=== PATIENT | male | born 1950 | race Caucasian/White ===

== ENCOUNTER 2016-09-02 13:27 | Inpatient (IN) | payer MEDICARE, MEDICAID ==
[~2016-09-02] VITALS: Ht 172.7 cm; Wt 84.6 kg
[2016-09-02 14:17] LABS: BASOPHILS # (AUTO) 0.04 K/uL (0.00-0.20); BASOPHILS % (AUTO) 0.3 % (0.0-2.0); EOSINOPHILS # (AUTO) 0.01 K/uL (0.00-0.70); EOSINOPHILS % (AUTO) 0.05 % (1.0-6.0); HEMOGLOBIN 14.7 g/dL (13.5-17.5); LYMPHOCYTES # (AUTO) 1.7 K/uL (1.0-4.8); LYMPHOCYTES % (AUTO) 13.2 % (22.0-44.0); MEAN CORPUSCULAR HEMOGLOBIN 30.5 pg (26.0-34.0); MEAN CORPUSCULAR HGB CONC 33.4 G/dL (31.0-37.0); MEAN CORPUSCULAR VOLUME 91 fL (80-100); NEUTROPHILS % (AUTO) 78.4 % (40.0-70.0); PLATELET COUNT (AUTO) 251 K/uL (150-450); RED BLOOD CELL COUNT(AUTO) 4.81 MIL/uL (4.50-5.90); RED CELL DISTRIBUTION WIDTH 12.1 % (11.5-14.5); WHITE BLOOD COUNT (AUTO) 12.7 K/uL (4.5-11.0)
[2016-09-02 14:27] LABS: ANION GAP 12 mmol/L (8-16); CALCIUM, TOTAL 8.3 mg/dL (8.8-10.5); CARBON DIOXIDE 24 mmol/L (22-29); CHLORIDE 100 mmol/L (98-107); CREATININE 1.28 mg/dL (0.60-1.30); GLOMERULAR FILTR. RATE CALC 56 mL/min (>60); POTASSIUM 3.5 mmol/L (3.5-5.1); SODIUM SERUM 136 mmol/L (136-145); UREA NITROGEN, BLOOD 14 mg/dL (7-18)
[2016-09-02] MEDS ORDERED: VANCOMYCIN HCL 1 GM/D5% WATER 200 ML IV ONE (14:45)
[2016-09-02 14:49] LABS: ALANINE AMINOTRANSFERASE 24 U/L (12-78); ALBUMIN 2.5 g/dL (3.4-5.0); ASPARTATE AMINOTRANSFERASE 28 U/L (15-37); BILIRUBIN,TOTAL 1.1 mg/dL (0.1-1.0); TOTAL PROTEIN, SERUM 7.1 g/dL (6.4-8.2)
[2016-09-02 15:19] LABS: LACTIC ACID 2.4 mmol/L (0.4-2.0)
[2016-09-02] MEDS ORDERED: SODIUM CHLORIDE 0.9% 1,000 ML IV ONE (15:30)
[2016-09-02 16:14] LABS: REFLEX LACTIC ACID? YES YES
[2016-09-02] MEDS ORDERED: ACETAMINOPHEN 325 MG TABLET PO PRN (16:15)
[2016-09-02] MEDS ORDERED: HYDROCODONE/ACETAMINOPHEN 5-325 MG TABLET PO PRN (16:15)
[2016-09-02] MEDS ORDERED: MORPHINE SULFATE 4 MG/ML SYRINGE IVP PRN (16:15)
[2016-09-02] MEDS ORDERED: ONDANSETRON HCL 4 MG/2 ML VIAL IVP PRN (16:15)
[2016-09-02 21:05] VITALS: BP 107/65
[2016-09-02 21:34] LABS: PROCALCITONIN (PCT) 1.28 ng/mL (<0.50)
[2016-09-02] MEDS ORDERED: INFLUENZA VIRUS VACCINE QVS 2016-17 (3YR+)/PF 60 MCG/0.5 ML SYRINGE IM ONE (23:45)
[2016-09-02] MEDS ORDERED: PNEUMOCOCCAL VACCINE POLYVALENT 0.5 ML VIAL [PPSV23] IM ONE (23:45)
[2016-09-03] MEDS ORDERED: ONDANSETRON HCL 4 MG/2 ML VIAL IVP PRN (02:00)
[2016-09-03] MEDS ORDERED: 0.9% SODIUM CHLORIDE 10 ML SYRINGE IVP PRN (02:00)
[2016-09-03] MEDS ORDERED: OxyCODONE HCL/ACETAMINOPHEN 5-325 MG TABLET PO PRN (02:00)
[2016-09-03] MEDS: DOCUSATE SODIUM 100 MG CAPSULE PO SCH ×3 (02:00→20:16)
[2016-09-03] MEDS: CEFTAROLINE 600 MG/D5W 250 ML IV SCH ×2 (02:55→14:23)
[2016-09-03 04:44] VITALS: BP 121/77
[2016-09-03 07:36] VITALS: BP 122/77
[2016-09-03] MEDS: OxyCODONE HCL/ACETAMINOPHEN 5-325 MG TABLET PO PRN ×2 (07:54→15:53)
[2016-09-03] MEDS: HEPARIN SODIUM,PORCINE 5,000 UNITS/ML VIAL SQ SCH ×2 (07:57→20:16)
[2016-09-03] MEDS: PANTOPRAZOLE SODIUM 40 MG/VIAL IVP SCH (07:57)
[2016-09-03] MEDS ORDERED: SODIUM CHLORIDE 0.9% 250 ML IV ONE (09:59)
[2016-09-03 12:14] VITALS: BP 115/80
[2016-09-03 15:12] VITALS: BP 123/82
[2016-09-03 23:18] VITALS: BP 142/75
[2016-09-04] MEDS: CEFTAROLINE 600 MG/D5W 250 ML IV SCH ×2 (03:05→15:33)
[2016-09-04 04:36] VITALS: BP 133/83
[2016-09-04 07:15] VITALS: BP 113/68
[2016-09-04 07:31] LABS: BASOPHILS # (AUTO) 0.08 K/uL (0.00-0.20); BASOPHILS % (AUTO) 0.8 % (0.0-2.0); EOSINOPHILS % (AUTO) 3.18 % (1.0-6.0); HEMOGLOBIN 13.3 g/dL (13.5-17.5); LYMPHOCYTES # (AUTO) 1.6 K/uL (1.0-4.8); LYMPHOCYTES % (AUTO) 16.6 % (22.0-44.0); MEAN CORPUSCULAR HEMOGLOBIN 30.7 pg (26.0-34.0); MEAN CORPUSCULAR HGB CONC 33.4 G/dL (31.0-37.0); MEAN CORPUSCULAR VOLUME 92 fL (80-100); MONOCYTES # (AUTO) 0.6 K/uL (0.1-1.0); MONOCYTES % (AUTO) 6.1 % (2.0-9.0); NEUTROPHILS % (AUTO) 73.4 % (40.0-70.0); PLATELET COUNT (AUTO) 250 K/uL (150-450); RED BLOOD CELL COUNT(AUTO) 4.34 MIL/uL (4.50-5.90); RED CELL DISTRIBUTION WIDTH 12.2 % (11.5-14.5); WHITE BLOOD COUNT (AUTO) 9.5 K/uL (4.5-11.0)
[2016-09-04 07:49] LABS: ANION GAP 8 mmol/L (8-16); CALCIUM, TOTAL 8.4 mg/dL (8.8-10.5); CARBON DIOXIDE 27 mmol/L (22-29); CHLORIDE 100 mmol/L (98-107); CREATININE 1.01 mg/dL (0.60-1.30); GLOMERULAR FILTR. RATE CALC > 60 mL/min (>60); POTASSIUM 4.2 mmol/L (3.5-5.1); SODIUM SERUM 135 mmol/L (136-145); UREA NITROGEN, BLOOD 17 mg/dL (7-18)
[2016-09-04] MEDS: PANTOPRAZOLE SODIUM 40 MG/VIAL IVP SCH (09:30)
[2016-09-04] MEDS: HEPARIN SODIUM,PORCINE 5,000 UNITS/ML VIAL SQ SCH ×3 (09:31→19:32)
[2016-09-04] MEDS: DOCUSATE SODIUM 100 MG CAPSULE PO SCH ×2 (09:31→19:32)
[2016-09-04 11:13] VITALS: BP 132/96
[2016-09-04] MEDS: SILVER SULFADIAZINE 1% 25 GM CREAM TP SCH (13:15)
[2016-09-04] MEDS: NYSTATIN/TRIAMCINOLONE 15 GM CREAM TP SCH (13:15)
[2016-09-04 16:22] VITALS: BP 136/77
[2016-09-04 19:35] VITALS: BP 129/92
[2016-09-04 23:35] VITALS: BP 144/81
[2016-09-05] MEDS: CEFTAROLINE 600 MG/D5W 250 ML IV SCH ×2 (02:12→13:41)
[2016-09-05 04:56] VITALS: BP 142/62
[2016-09-05 06:56] LABS: BASOPHILS % (AUTO) 0.6 % (0.0-2.0); EOSINOPHILS % (AUTO) 8.1 % (1.0-6.0); HEMATOCRIT 43.2 % (41-53); HEMOGLOBIN 14.1 g/dL (13.5-17.5); LYMPHOCYTES % (AUTO) 33.9 % (22.0-44.0); MEAN CORPUSCULAR HEMOGLOBIN 30.3 pg (26.0-34.0); MEAN CORPUSCULAR HGB CONC 32.8 G/dL (31.0-37.0); MEAN CORPUSCULAR VOLUME 93 fL (80-100); MONOCYTES # (AUTO) 0.6 K/uL (0.1-1.0); MONOCYTES % (AUTO) 9.1 % (2.0-9.0); NEUTROPHILS # (AUTO) 2.9 K/uL (1.8-7.7); NEUTROPHILS % (AUTO) 48.3 % (40.0-70.0); PLATELET COUNT (AUTO) 307 K/uL (150-450); RED BLOOD CELL COUNT(AUTO) 4.66 MIL/uL (4.50-5.90); RED CELL DISTRIBUTION WIDTH 12.6 % (11.5-14.5); WHITE BLOOD COUNT (AUTO) 6.1 K/uL (4.5-11.0)
[2016-09-05 07:14] LABS: ANION GAP 7 mmol/L (8-16); CALCIUM, TOTAL 8.7 mg/dL (8.8-10.5); CARBON DIOXIDE 29 mmol/L (22-29); CHLORIDE 103 mmol/L (98-107); CREATININE 1.07 mg/dL (0.60-1.30); GLOMERULAR FILTR. RATE CALC > 60 mL/min (>60); POTASSIUM 4.4 mmol/L (3.5-5.1); SODIUM SERUM 139 mmol/L (136-145); UREA NITROGEN, BLOOD 20 mg/dL (7-18)
[2016-09-05 07:54] VITALS: BP 129/87
[2016-09-05] MEDS: DOCUSATE SODIUM 100 MG CAPSULE PO SCH ×2 (08:16→20:00)
[2016-09-05] MEDS: MULTIVITAMINS WITH MINERALS, THERAPEUTIC TABLET PO SCH (08:16)
[2016-09-05] MEDS: PANTOPRAZOLE SODIUM 40 MG/VIAL IVP SCH (08:16)
[2016-09-05] MEDS: FOLIC ACID 1 MG TABLET PO SCH (08:16)
[2016-09-05] MEDS: THIAMINE HCL 100 MG TABLET PO SCH (08:16)
[2016-09-05] MEDS: HEPARIN SODIUM,PORCINE 5,000 UNITS/ML VIAL SQ SCH ×3 (08:17→20:00)
[2016-09-05] MEDS: NYSTATIN/TRIAMCINOLONE 15 GM CREAM TP SCH (08:17)
[2016-09-05] MEDS: SILVER SULFADIAZINE 1% 25 GM CREAM TP SCH (08:17)
[2016-09-05] MEDS ORDERED: THIAMINE HCL 100 MG TABLET PO SCH (09:00)
[2016-09-05] MEDS ORDERED: FOLIC ACID 1 MG TABLET PO SCH (09:00)
[2016-09-05] MEDS ORDERED: MULTIVITAMINS WITH MINERALS, THERAPEUTIC TABLET PO SCH (09:00)
[2016-09-05 11:57] VITALS: BP 143/87
[2016-09-05 15:39] VITALS: BP 142/90
[2016-09-05 19:42] VITALS: BP 143/81
[2016-09-05] MEDS: OxyCODONE HCL/ACETAMINOPHEN 5-325 MG TABLET PO PRN (20:10)
[2016-09-06 00:04] VITALS: BP 138/85
[2016-09-06] MEDS: CEFTAROLINE 600 MG/D5W 250 ML IV SCH ×2 (02:31→12:00)
[2016-09-06 04:31] VITALS: BP 140/88
[2016-09-06 08:11] VITALS: BP 127/79
[2016-09-06] MEDS: MULTIVITAMINS WITH MINERALS, THERAPEUTIC TABLET PO SCH (08:38)
[2016-09-06] MEDS: HEPARIN SODIUM,PORCINE 5,000 UNITS/ML VIAL SQ SCH (08:38)
[2016-09-06] MEDS: PANTOPRAZOLE SODIUM 40 MG/VIAL IVP SCH (08:38)
[2016-09-06] MEDS: THIAMINE HCL 100 MG TABLET PO SCH (08:39)
[2016-09-06] MEDS: DOCUSATE SODIUM 100 MG CAPSULE PO SCH (08:39)
[2016-09-06] MEDS: NYSTATIN/TRIAMCINOLONE 15 GM CREAM TP SCH (08:39)
[2016-09-06] MEDS: FOLIC ACID 1 MG TABLET PO SCH (08:40)
[2016-09-06] MEDS: SILVER SULFADIAZINE 1% 25 GM CREAM TP SCH (08:40)
[2016-09-06 12:41] VITALS: BP 117/85
[2016-09-06 13:00] VITALS: BP 152/96
== END 2016-09-06 16:00 | DRG 871 ==
LOC: EMS 13:29 → 6N 20:03
PROVIDERS: ADMIT Internal Medicine; ATTEND Internal Medicine
PROC: 3E0234Z Introduction of Serum, Toxoid and Vaccine into Muscle, Percutaneous Approach (ICD-10-PCS; principal; 2016-09-02)
DX: A41.9 Sepsis, unspecified organism (principal); E43 Unspecified severe protein-calorie malnutrition; L03.115 Cellulitis of right lower limb; F17.210 Nicotine dependence, cigarettes, uncomplicated; F10.10 Alcohol abuse, uncomplicated; I51.9 Heart disease, unspecified; M54.30 Sciatica, unspecified side; Z23 Encounter for immunization; Z59.0 Homelessness; Z68.28 Body mass index [BMI] 28.0-28.9, adult
CPT/HCPCS: 83605; 84145; 90471; 93005; 93971; 96365; 96366; 97161; 97530; 99285; C9113; J0712; J1644; J2270; J3370; J7030; J7050

== ENCOUNTER 2017-06-30 20:34 | Inpatient (IN) | payer MEDICARE, MEDICAID ==
[~2017-06-30] VITALS: Ht 175.3 cm; Wt 86.8 kg
[2017-06-30] MEDS ORDERED: ALBUTEROL SULFATE 2.5 MG/0.5 ML NEB SOLUTION NEB ONE (21:00)
[2017-06-30] MEDS ORDERED: IPRATROPIUM BROMIDE 0.5 MG/2.5 ML NEB SOLUTION NEB ONE (21:00)
[2017-06-30] MEDS ORDERED: SODIUM CHLORIDE 0.9% 1,000 ML IV ONE (21:15)
[2017-06-30 21:17] LABS: BASOPHILS % (AUTO) 0.3 % (0.0-2.0); EOSINOPHILS % (AUTO) 2.8 % (1.0-6.0); HEMATOCRIT 41.9 % (41-53); HEMOGLOBIN 14.2 g/dL (13.5-17.5); MEAN CORPUSCULAR HEMOGLOBIN 31.9 pg (26.0-34.0); MEAN CORPUSCULAR HGB CONC 33.9 G/dL (31.0-37.0); MEAN CORPUSCULAR VOLUME 94 fL (80-100); MONOCYTES # (AUTO) 0.7 K/uL (0.1-1.0); MONOCYTES % (AUTO) 7.8 % (2.0-9.0); NEUTROPHILS # (AUTO) 6.2 K/uL (1.8-7.7); NEUTROPHILS % (AUTO) 67.1 % (40.0-70.0); PLATELET COUNT (AUTO) 326 K/uL (150-450); RED BLOOD CELL COUNT(AUTO) 4.45 MIL/uL (4.50-5.90)
[2017-06-30 21:28] LABS: ANION GAP 8 mmol/L (8-16); CALCIUM, TOTAL 8.4 mg/dL (8.8-10.5); CARBON DIOXIDE 25 mmol/L (22-29); CHLORIDE 106 mmol/L (98-107); CREATININE 1.02 mg/dL (0.60-1.30); GLOMERULAR FILTR. RATE CALC > 60 mL/min (>60); GLUCOSE,RANDOM 118 mg/dL (70-110); POTASSIUM 4.3 mmol/L (3.5-5.1); SODIUM SERUM 139 mmol/L (136-145); UREA NITROGEN, BLOOD 21 mg/dL (7-18)
[2017-06-30 21:37] LABS: PLATELET MORPHOLOGY COMMENT NORMAL
[2017-06-30 21:38] LABS: PROTHROMBIN TIME 10.7 SEC (9.4-11.6)
[2017-06-30 21:46] LABS: B-TYPE NATRIURETIC PEPTIDE 693 pg/mL (0-100)
[2017-06-30 21:53] LABS: ALANINE AMINOTRANSFERASE 56 U/L (12-78); ALBUMIN 2.8 g/dL (3.4-5.0); ALKALINE PHOSPHATASE 242 U/L (46-116); ASPARTATE AMINOTRANSFERASE 49 U/L (15-37); BILIRUBIN,TOTAL 0.5 mg/dL (0.1-1.0); CKMB RELATIVE INDEX 4.7 % (0.0-4.0); CREATINE KINASE MB 5.6 ng/mL (0-5); CREATINE KINASE, TOTAL 120 U/L (39-308); TOTAL PROTEIN, SERUM 6.7 g/dL (6.4-8.2)
[2017-06-30] MEDS ORDERED: ASPIRIN 325 MG TABLET PO ONE (22:00)
[2017-06-30] MEDS ORDERED: HEPARIN SODIUM 25000 UNITS/D5W 250 ML IV PRN ×2 (22:12→22:33)
[2017-06-30] MEDS ORDERED: HEPARIN SODIUM,PORCINE 5,000 UNITS/ML VIAL IVP ONE ×3 (22:15→22:45)
[2017-06-30] MEDS ORDERED: DILTIAZEM HCL 5 MG/ML 5 ML VIAL IVP ONE (22:15)
[2017-06-30] MEDS ORDERED: HEPARIN SODIUM,PORCINE 5,000 UNITS/ML VIAL IVP PRN ×4 (22:15→22:45)
[2017-07-01] MEDS: DILTIAZEM HCL 125 MG in DEXTROSE 5%-WATER 100 ML IV SCH ×2 (00:23→16:49)
[2017-07-01 01:55] LABS: AMPHET/METH SCREEN,URINE POSITIVE (NEGATIVE); BARBITURATE SCREEN, URINE NEGATIVE (NEGATIVE); BENZODIAZEPINES SCREEN,URINE NEGATIVE (NEGATIVE); CANNABINOID SCREEN,URINE NEGATIVE (NEGATIVE); COCAINE SCREEN,URINE NEGATIVE (NEGATIVE); METHADONE SCREEN, URINE NEGATIVE (NEGATIVE); OPIATE SCREEN,URINE NEGATIVE (NEGATIVE)
[2017-07-01 01:56] LABS: PHENCYCLIDINE SCREEN,URINE NEGATIVE (NEGATIVE)
[2017-07-01] MEDS ORDERED: ALBUTEROL SULFATE 2.5 MG/0.5 ML NEB SOLUTION NEB ONE (04:00)
[2017-07-01] MEDS ORDERED: 0.9% SODIUM CHLORIDE 5 ML NEB SOLUTION NEB ONE ×2 (04:07→19:47)
[2017-07-01 06:04] LABS: BASOPHILS # (AUTO) 0.05 K/uL (0.00-0.20); BASOPHILS % (AUTO) 0.6 % (0.0-2.0); EOSINOPHILS # (AUTO) 0.29 K/uL (0.00-0.70); EOSINOPHILS % (AUTO) 3.81 % (1.0-6.0); HEMATOCRIT 40.3 % (41-53); HEMOGLOBIN 13.4 g/dL (13.5-17.5); LYMPHOCYTES # (AUTO) 2.2 K/uL (1.0-4.8); LYMPHOCYTES % (AUTO) 29.5 % (22.0-44.0); MEAN CORPUSCULAR HEMOGLOBIN 31.4 pg (26.0-34.0); MEAN CORPUSCULAR HGB CONC 33.3 G/dL (31.0-37.0); MEAN CORPUSCULAR VOLUME 94 fL (80-100); MONOCYTES # (AUTO) 0.6 K/uL (0.1-1.0); MONOCYTES % (AUTO) 7.9 % (2.0-9.0); NEUTROPHILS # (AUTO) 4.4 K/uL (1.8-7.7); NEUTROPHILS % (AUTO) 58.2 % (40.0-70.0); PLATELET COUNT (AUTO) 261 K/uL (150-450); RED BLOOD CELL COUNT(AUTO) 4.28 MIL/uL (4.50-5.90); RED CELL DISTRIBUTION WIDTH 16.9 % (11.5-14.5)
[2017-07-01] MEDS ORDERED: DILTIAZEM HCL 5 MG/ML 5 ML VIAL IVP ONE ×2 (09:15→09:30)
[2017-07-01 09:36] VITALS: BP 116/70
[2017-07-01] MEDS: ENOXAPARIN SODIUM 100 MG/ML PF SYRINGE SQ SCH ×2 (09:39→20:44)
[2017-07-01] MEDS: PANTOPRAZOLE SODIUM 40 MG DR TABLET PO SCH (09:39)
[2017-07-01] MEDS: METOPROLOL TARTRATE 25 MG TABLET PO SCH ×2 (10:09→20:43)
[2017-07-01] MEDS ORDERED: 0.9% SODIUM CHLORIDE 15 ML NEB SOLUTION NEB ONE (10:33)
[2017-07-01] MEDS: ALBUTEROL SULFATE 2.5 MG/0.5 ML NEB SOLUTION NEB PRN ×2 (10:43→19:52)
[2017-07-01 11:13] VITALS: BP 136/89
[2017-07-01 17:01] VITALS: BP 122/78
[2017-07-01] MEDS ORDERED: INFLUENZA VIRUS VACCINE QVS 2017-18 (3YR+)/PF 60 MCG/0.5 ML SYRINGE IM ONE (18:30)
[2017-07-01 19:44] VITALS: BP 125/67
[2017-07-01] MEDS: FUROSEMIDE 40 MG/4 ML VIAL IVP SCH (20:43)
[2017-07-01] MEDS ORDERED: FUROSEMIDE 40 MG/4 ML VIAL IVP SCH (21:00)
[2017-07-01 23:43] VITALS: BP 143/86
[2017-07-02 03:46] VITALS: BP 121/89
[2017-07-02] MEDS ORDERED: 0.9% SODIUM CHLORIDE 5 ML NEB SOLUTION NEB ONE ×5 (07:10→20:02)
[2017-07-02] MEDS: ALBUTEROL SULFATE 2.5 MG/0.5 ML NEB SOLUTION NEB PRN ×4 (07:11→20:04)
[2017-07-02 07:44] VITALS: BP 122/80
[2017-07-02] MEDS: ENOXAPARIN SODIUM 100 MG/ML PF SYRINGE SQ SCH ×2 (09:19→20:03)
[2017-07-02] MEDS: FUROSEMIDE 40 MG/4 ML VIAL IVP SCH ×2 (09:20→20:03)
[2017-07-02] MEDS: PANTOPRAZOLE SODIUM 40 MG DR TABLET PO SCH (09:20)
[2017-07-02] MEDS: METOPROLOL TARTRATE 25 MG TABLET PO SCH ×2 (09:20→20:02)
[2017-07-02] MEDS: HYDROCODONE/ACETAMINOPHEN 10-325 MG TABLET PO PRN ×3 (11:04→23:27)
[2017-07-02] MEDS: FLUTICASONE/SALMETEROL 250 MCG-50 MCG/INH DISKUS INHALER [28] IH SCH ×2 (11:04→20:02)
[2017-07-02 11:26] VITALS: BP 131/84
[2017-07-02 15:25] VITALS: BP 144/92
[2017-07-02 19:36] VITALS: BP 119/65
[2017-07-02] MEDS: DILTIAZEM HCL 125 MG in DEXTROSE 5%-WATER 100 ML IV SCH (21:32)
[2017-07-02 23:22] VITALS: BP 115/73
[2017-07-03] MEDS ORDERED: 0.9% SODIUM CHLORIDE 5 ML NEB SOLUTION NEB ONE ×2 (03:26→21:02)
[2017-07-03 04:23] VITALS: BP 121/88
[2017-07-03 05:57] LABS: BASOPHILS % (AUTO) 0.5 % (0.0-2.0); EOSINOPHILS % (AUTO) 4.1 % (1.0-6.0); HEMATOCRIT 40.3 % (41-53); HEMOGLOBIN 13.3 g/dL (13.5-17.5); LYMPHOCYTES % (AUTO) 25.3 % (22.0-44.0); MEAN CORPUSCULAR HEMOGLOBIN 31.7 pg (26.0-34.0); MEAN CORPUSCULAR VOLUME 96 fL (80-100); MONOCYTES # (AUTO) 0.8 K/uL (0.1-1.0); MONOCYTES % (AUTO) 9.7 % (2.0-9.0); NEUTROPHILS # (AUTO) 4.8 K/uL (1.8-7.7); NEUTROPHILS % (AUTO) 60.4 % (40.0-70.0); PLATELET COUNT (AUTO) 278 K/uL (150-450); RED CELL DISTRIBUTION WIDTH 16.9 % (11.5-14.5)
[2017-07-03 06:31] LABS: ALANINE AMINOTRANSFERASE 33 U/L (12-78); ALBUMIN 2.6 g/dL (3.4-5.0); ALKALINE PHOSPHATASE 184 U/L (46-116); ANION GAP 6 mmol/L (8-16); ASPARTATE AMINOTRANSFERASE 34 U/L (15-37); BILIRUBIN,TOTAL 0.5 mg/dL (0.1-1.0); CALCIUM, TOTAL 8.8 mg/dL (8.8-10.5); CARBON DIOXIDE 31 mmol/L (22-29); CHLORIDE 101 mmol/L (98-107); CREATININE 1.19 mg/dL (0.60-1.30); GLOMERULAR FILTR. RATE CALC > 60 mL/min (>60); GLUCOSE,RANDOM 88 mg/dL (70-110); POTASSIUM 4.3 mmol/L (3.5-5.1); SODIUM SERUM 138 mmol/L (136-145); TOTAL PROTEIN, SERUM 6.4 g/dL (6.4-8.2); UREA NITROGEN, BLOOD 26 mg/dL (7-18)
[2017-07-03 07:09] VITALS: BP 113/86
[2017-07-03] MEDS: FLUTICASONE/SALMETEROL 250 MCG-50 MCG/INH DISKUS INHALER [28] IH SCH (09:08)
[2017-07-03] MEDS: PANTOPRAZOLE SODIUM 40 MG DR TABLET PO SCH (09:08)
[2017-07-03] MEDS: ENOXAPARIN SODIUM 100 MG/ML PF SYRINGE SQ SCH ×2 (09:08→20:27)
[2017-07-03] MEDS: METOPROLOL TARTRATE 25 MG TABLET PO SCH (09:08)
[2017-07-03] MEDS: FUROSEMIDE 40 MG/4 ML VIAL IVP SCH ×2 (09:09→20:27)
[2017-07-03] MEDS ORDERED: MAGNESIUM SULFATE 4 GM/WATER 100 ML IV PRN (10:15)
[2017-07-03] MEDS ORDERED: MAGNESIUM SULFATE 2 GM in DEXTROSE 5%-WATER 50 ML IV PRN (10:15)
[2017-07-03] MEDS ORDERED: METOPROLOL TARTRATE 25 MG TABLET PO ONE (11:00)
[2017-07-03 11:29] VITALS: BP 125/55
[2017-07-03] MEDS: FLUTICASONE/VILANTEROL 200-25 MCG/INH INHALER [14] IH SCH (11:52)
[2017-07-03] MEDS: MAGNESIUM OXIDE 400 MG TABLET PO PRN ×2 (13:43→18:08)
[2017-07-03 15:42] VITALS: BP 122/66
[2017-07-03] MEDS: DILTIAZEM HCL 125 MG in DEXTROSE 5%-WATER 100 ML IV SCH (16:45)
[2017-07-03] MEDS: METOPROLOL TARTRATE 50 MG TABLET PO SCH ×2 (16:59→23:58)
[2017-07-03] MEDS ORDERED: METOPROLOL TARTRATE 50 MG TABLET PO SCH (21:00)
[2017-07-03] MEDS: ALBUTEROL SULFATE 2.5 MG/0.5 ML NEB SOLUTION NEB PRN (21:06)
[2017-07-03] MEDS ORDERED: ZOLPIDEM TARTRATE 5 MG TABLET PO PRN (22:30)
[2017-07-03 23:54] VITALS: BP 118/69
[2017-07-04 05:30] VITALS: BP 113/74
[2017-07-04 06:35] LABS: BASOPHILS # (AUTO) 0.03 K/uL (0.00-0.20); BASOPHILS % (AUTO) 0.3 % (0.0-2.0); EOSINOPHILS # (AUTO) 0.28 K/uL (0.00-0.70); HEMATOCRIT 42.4 % (41-53); HEMOGLOBIN 13.7 g/dL (13.5-17.5); LYMPHOCYTES # (AUTO) 1.8 K/uL (1.0-4.8); LYMPHOCYTES % (AUTO) 20.9 % (22.0-44.0); MEAN CORPUSCULAR HEMOGLOBIN 30.9 pg (26.0-34.0); MEAN CORPUSCULAR HGB CONC 32.2 G/dL (31.0-37.0); MEAN CORPUSCULAR VOLUME 96 fL (80-100); MONOCYTES # (AUTO) 0.7 K/uL (0.1-1.0); MONOCYTES % (AUTO) 8.5 % (2.0-9.0); NEUTROPHILS # (AUTO) 5.6 K/uL (1.8-7.7); PLATELET COUNT (AUTO) 241 K/uL (150-450); RED BLOOD CELL COUNT(AUTO) 4.42 MIL/uL (4.50-5.90); RED CELL DISTRIBUTION WIDTH 16.7 % (11.5-14.5)
[2017-07-04 06:47] LABS: ALANINE AMINOTRANSFERASE 31 U/L (12-78); ALBUMIN 2.5 g/dL (3.4-5.0); ALKALINE PHOSPHATASE 165 U/L (46-116); ANION GAP 2 mmol/L (8-16); ASPARTATE AMINOTRANSFERASE 34 U/L (15-37); BILIRUBIN,TOTAL 0.6 mg/dL (0.1-1.0); CALCIUM, TOTAL 8.5 mg/dL (8.8-10.5); CARBON DIOXIDE 36 mmol/L (22-29); CHLORIDE 99 mmol/L (98-107); CREATININE 1.04 mg/dL (0.60-1.30); GLOMERULAR FILTR. RATE CALC > 60 mL/min (>60); GLUCOSE,RANDOM 165 mg/dL (70-110); POTASSIUM 4.1 mmol/L (3.5-5.1); SODIUM SERUM 137 mmol/L (136-145); TOTAL PROTEIN, SERUM 6.5 g/dL (6.4-8.2); UREA NITROGEN, BLOOD 25 mg/dL (7-18)
[2017-07-04 08:17] VITALS: BP 112/70
[2017-07-04] MEDS: FLUTICASONE/VILANTEROL 200-25 MCG/INH INHALER [14] IH SCH (08:19)
[2017-07-04] MEDS: FUROSEMIDE 40 MG/4 ML VIAL IVP SCH (08:19)
[2017-07-04] MEDS: PANTOPRAZOLE SODIUM 40 MG DR TABLET PO SCH (08:19)
[2017-07-04] MEDS: ENOXAPARIN SODIUM 100 MG/ML PF SYRINGE SQ SCH (08:19)
[2017-07-04] MEDS: METOPROLOL TARTRATE 50 MG TABLET PO SCH ×2 (08:19→22:01)
[2017-07-04] MEDS ORDERED: HEPARIN SODIUM 25000 UNITS/D5W 250 ML IV PRN (10:50)
[2017-07-04] MEDS ORDERED: HEPARIN SODIUM,PORCINE 5,000 UNITS/ML VIAL IVP ONE (11:00)
[2017-07-04] MEDS ORDERED: HEPARIN SODIUM,PORCINE 5,000 UNITS/ML VIAL IVP PRN ×2 (11:00)
[2017-07-04] MEDS: ATORVASTATIN CALCIUM 40 MG TABLET PO SCH (11:01)
[2017-07-04] MEDS: ASPIRIN 81 MG EC TABLET PO SCH (11:01)
[2017-07-04 11:33] VITALS: BP 138/65
[2017-07-04] MEDS ORDERED: SODIUM CHLORIDE 0.9% 100 ML ONE (12:29)
[2017-07-04 20:00] VITALS: BP 118/66
[2017-07-04] MEDS ORDERED: DIGOXIN 250 MCG/ML 2 ML AMP IVP ONE (21:45)
[2017-07-04 23:44] VITALS: BP 109/58
[2017-07-05] VITALS (8 sets, daily range): BP systolic 111–117; BP diastolic 60–98
[2017-07-05] MEDS: FLUTICASONE/VILANTEROL 200-25 MCG/INH INHALER [14] IH SCH (08:58)
[2017-07-05] MEDS: ASPIRIN 81 MG EC TABLET PO SCH (09:00)
[2017-07-05] MEDS ORDERED: IOHEXOL 300 MG/ML 150 ML VIAL ONE (09:03)
[2017-07-05] MEDS ORDERED: LIDOCAINE HCL/PF 1% 30 ML VIAL ONE (09:03)
[2017-07-05] MEDS ORDERED: SODIUM BICARBONATE 50 MEQ/50 ML VIAL ONE (09:03)
[2017-07-05] MEDS ORDERED: HEPARIN SODIUM 1000 UNITS/NS 1,000 ML ONE (09:03)
[2017-07-05 09:28] LABS: BASOPHILS % (AUTO) 0.4 % (0.0-2.0); EOSINOPHILS % (AUTO) 3.9 % (1.0-6.0); HEMATOCRIT 45.5 % (41-53); HEMOGLOBIN 15.2 g/dL (13.5-17.5); LYMPHOCYTES # (AUTO) 2.2 K/uL (1.0-4.8); LYMPHOCYTES % (AUTO) 24.6 % (22.0-44.0); MEAN CORPUSCULAR HEMOGLOBIN 31.7 pg (26.0-34.0); MEAN CORPUSCULAR HGB CONC 33.5 G/dL (31.0-37.0); MEAN CORPUSCULAR VOLUME 95 fL (80-100); MONOCYTES # (AUTO) 0.9 K/uL (0.1-1.0); MONOCYTES % (AUTO) 9.8 % (2.0-9.0); NEUTROPHILS # (AUTO) 5.4 K/uL (1.8-7.7); NEUTROPHILS % (AUTO) 61.3 % (40.0-70.0); PLATELET COUNT (AUTO) 264 K/uL (150-450); RED CELL DISTRIBUTION WIDTH 16.5 % (11.5-14.5)
[2017-07-05 09:51] LABS: ALANINE AMINOTRANSFERASE 29 U/L (12-78); ALBUMIN 2.7 g/dL (3.4-5.0); ALKALINE PHOSPHATASE 168 U/L (46-116); ANION GAP 1 mmol/L (8-16); ASPARTATE AMINOTRANSFERASE 33 U/L (15-37); BILIRUBIN,TOTAL 0.7 mg/dL (0.1-1.0); CALCIUM, TOTAL 8.6 mg/dL (8.8-10.5); CARBON DIOXIDE 35 mmol/L (22-29); CHLORIDE 102 mmol/L (98-107); CREATINE KINASE, TOTAL 49 U/L (39-308); CREATININE 0.97 mg/dL (0.60-1.30); GLOMERULAR FILTR. RATE CALC > 60 mL/min (>60); GLUCOSE,RANDOM 90 mg/dL (70-110); POTASSIUM 4.7 mmol/L (3.5-5.1); SODIUM SERUM 138 mmol/L (136-145); UREA NITROGEN, BLOOD 25 mg/dL (7-18)
[2017-07-05] MEDS ORDERED: FentaNYL CITRATE-PF 100 MCG/2 ML VIAL ONE (09:53)
[2017-07-05] MEDS ORDERED: MIDAZOLAM HCL 2 MG/2 ML VIAL ONE (09:53)
[2017-07-05] MEDS ORDERED: SODIUM CHLORIDE 0.9% 500 ML IV ONE (10:01)
[2017-07-05] MEDS ORDERED: HEPARIN SODIUM 1000 UNITS/NS 1,000 ML IARTER ONE (10:01)
[2017-07-05 10:10] LABS: B-TYPE NATRIURETIC PEPTIDE 1060 pg/mL (0-100)
[2017-07-05] MEDS ORDERED: LIDOCAINE 1% 30 ML/SOD BICARB 8.4% 4 ML SQ ONE (10:15)
[2017-07-05] MEDS ORDERED: MIDAZOLAM HCL 2 MG/2 ML VIAL IVP ONE (10:15)
[2017-07-05] MEDS ORDERED: FentaNYL CITRATE-PF 100 MCG/2 ML VIAL IVP ONE (10:15)
[2017-07-05] MEDS ORDERED: IOHEXOL 300 MG/ML 150 ML VIAL IARTER ONE (10:15)
[2017-07-05] MEDS: PANTOPRAZOLE SODIUM 40 MG DR TABLET PO SCH (11:38)
[2017-07-05] MEDS: METOPROLOL TARTRATE 50 MG TABLET PO SCH ×2 (11:38→21:51)
[2017-07-05] MEDS: ATORVASTATIN CALCIUM 40 MG TABLET PO SCH (11:39)
[2017-07-05] MEDS: DIGOXIN 250 MCG/ML 2 ML AMP IVP SCH (16:09)
[2017-07-05] MEDS: RIVAROXABAN 15 MG TABLET PO SCH (18:00)
[2017-07-05] MEDS ORDERED: IPRATROPIUM BROMIDE 0.5 MG/2.5 ML NEB SOLUTION NEB PRN (22:15)
[2017-07-05] MEDS ORDERED: LEVALBUTEROL HCL 0.63 MG/3 ML NEB SOLUTION NEB PRN (22:15)
[2017-07-06 04:14] VITALS: BP 119/77
[2017-07-06 07:04] VITALS: BP 118/75
[2017-07-06] MEDS: FLUTICASONE/VILANTEROL 200-25 MCG/INH INHALER [14] IH SCH (07:24)
[2017-07-06] MEDS: PANTOPRAZOLE SODIUM 40 MG DR TABLET PO SCH (07:27)
[2017-07-06] MEDS: DIGOXIN 250 MCG/ML 2 ML AMP IVP SCH (07:27)
[2017-07-06] MEDS: METOPROLOL TARTRATE 50 MG TABLET PO SCH (07:28)
[2017-07-06 07:56] LABS: BASOPHILS % (AUTO) 0.5 % (0.0-2.0); HEMATOCRIT 43.3 % (41-53); HEMOGLOBIN 14.4 g/dL (13.5-17.5); LYMPHOCYTES # (AUTO) 2.4 K/uL (1.0-4.8); MEAN CORPUSCULAR HEMOGLOBIN 31.7 pg (26.0-34.0); MEAN CORPUSCULAR HGB CONC 33.4 G/dL (31.0-37.0); MEAN CORPUSCULAR VOLUME 95 fL (80-100); MONOCYTES % (AUTO) 10.5 % (2.0-9.0); NEUTROPHILS # (AUTO) 5.8 K/uL (1.8-7.7); PLATELET COUNT (AUTO) 259 K/uL (150-450); RED BLOOD CELL COUNT(AUTO) 4.55 MIL/uL (4.50-5.90); RED CELL DISTRIBUTION WIDTH 16.4 % (11.5-14.5)
[2017-07-06 08:17] LABS: ALANINE AMINOTRANSFERASE 27 U/L (12-78); ALBUMIN 2.6 g/dL (3.4-5.0); ALKALINE PHOSPHATASE 154 U/L (46-116); ANION GAP 7 mmol/L (8-16); ASPARTATE AMINOTRANSFERASE 30 U/L (15-37); BILIRUBIN,TOTAL 0.6 mg/dL (0.1-1.0); CALCIUM, TOTAL 8.8 mg/dL (8.8-10.5); CARBON DIOXIDE 31 mmol/L (22-29); CHLORIDE 101 mmol/L (98-107); CREATININE 0.95 mg/dL (0.60-1.30); GLOMERULAR FILTR. RATE CALC > 60 mL/min (>60); GLUCOSE,RANDOM 84 mg/dL (70-110); POTASSIUM 4.5 mmol/L (3.5-5.1); SODIUM SERUM 139 mmol/L (136-145); TOTAL PROTEIN, SERUM 6.7 g/dL (6.4-8.2); UREA NITROGEN, BLOOD 25 mg/dL (7-18)
[2017-07-06 11:10] VITALS: BP 108/58
[2017-07-06 15:30] VITALS: BP 117/68
[2017-07-06] MEDS: RIVAROXABAN 15 MG TABLET PO SCH (16:44)
== END 2017-07-06 19:35 | DRG 280 ==
LOC: EMS 20:48 → 5N 07-01 05:32 → 5S 07-03 22:50 → 5N 07-04 05:57
PROVIDERS: ADMIT Hospitalist; ATTEND Hospitalist
PROC: 4A023N8 Measurement of Cardiac Sampling and Pressure, Bilateral, Percutaneous Approach (ICD-10-PCS; principal; 2017-07-05)
PROC: B2111ZZ Fluoroscopy of Multiple Coronary Arteries using Low Osmolar Contrast (ICD-10-PCS; 2017-07-05)
PROC: B2151ZZ Fluoroscopy of Left Heart using Low Osmolar Contrast (ICD-10-PCS; 2017-07-05)
DX: I21.4 Non-ST elevation (NSTEMI) myocardial infarction (principal); I50.41 Acute combined systolic (congestive) and diastolic (congestive) heart failure; I45.2 Bifascicular block; I48.2 Chronic atrial fibrillation; I35.0 Nonrheumatic aortic (valve) stenosis; I11.0 Hypertensive heart disease with heart failure; F10.20 Alcohol dependence, uncomplicated; F15.10 Other stimulant abuse, uncomplicated; F17.210 Nicotine dependence, cigarettes, uncomplicated; J44.9 Chronic obstructive pulmonary disease, unspecified; Z59.0 Homelessness; Z87.01 Personal history of pneumonia (recurrent)
CPT/HCPCS: 83735; 93005; 93306; 93460; 94640; 96365; 96366; 96375; 96376; 97161; 99291; G0480; J1160; J1644; J1650; J1940; J2250; J3010; J3475; J3490; J3535; J7030; J7050; J7060; Q9967

== ENCOUNTER 2017-07-15 20:41 | Inpatient (IN) | payer MEDICARE, MEDICAID ==
[~2017-07-15] VITALS: Ht 167.6 cm; Wt 90.2 kg
[2017-07-15] MEDS ORDERED: ALBUTEROL SULFATE 5 MG/ML 20 ML NEB SOLN [BULK] NEB ONE ×2 (21:00→22:30)
[2017-07-15] MEDS ORDERED: IPRATROPIUM BROMIDE 0.5 MG/2.5 ML NEB SOLUTION NEB ONE ×2 (21:00→22:30)
[2017-07-15 21:18] LABS: BASOPHILS # (AUTO) 0.06 K/uL (0.00-0.20); BASOPHILS % (AUTO) 0.4 % (0.0-2.0); EOSINOPHILS % (AUTO) 0 % (1.0-6.0); HEMATOCRIT 42.6 % (41-53); HEMOGLOBIN 14.1 g/dL (13.5-17.5); LYMPHOCYTES # (AUTO) 1.3 K/uL (1.0-4.8); LYMPHOCYTES % (AUTO) 7.2 % (22.0-44.0); MEAN CORPUSCULAR HEMOGLOBIN 30.3 pg (26.0-34.0); MEAN CORPUSCULAR HGB CONC 33.1 G/dL (31.0-37.0); MEAN CORPUSCULAR VOLUME 92 fL (80-100); MONOCYTES # (AUTO) 0.8 K/uL (0.1-1.0); MONOCYTES % (AUTO) 4.6 % (2.0-9.0); NEUTROPHILS # (AUTO) 15.6 K/uL (1.8-7.7); PLATELET COUNT (AUTO) 355 K/uL (150-450); RED BLOOD CELL COUNT(AUTO) 4.66 MIL/uL (4.50-5.90); RED CELL DISTRIBUTION WIDTH 15.8 % (11.5-14.5)
[2017-07-15 21:20] LABS: NEUTROPHILS % (AUTO) 87.9 % (40.0-70.0)
[2017-07-15 21:30] LABS: CALCIUM, TOTAL 9.5 mg/dL (8.8-10.5); CREATININE 1.58 mg/dL (0.60-1.30); POTASSIUM 5.5 mmol/L (3.5-5.1)
[2017-07-15] MEDS ORDERED: FUROSEMIDE 40 MG/4 ML VIAL IVP ONE (21:30)
[2017-07-15] MEDS ORDERED: LORazepam 2 MG/ML VIAL IVP ONE (21:30)
[2017-07-15 21:31] LABS: INR 1.3 (0.9-1.1)
[2017-07-15 21:39] LABS: PLATELET MORPHOLOGY COMMENT NORMAL
[2017-07-15 21:54] LABS: ALBUMIN 3.1 g/dL (3.4-5.0); BILIRUBIN,TOTAL 2.3 mg/dL (0.1-1.0); CKMB RELATIVE INDEX 1.5 % (0.0-4.0); TOTAL PROTEIN, SERUM 7.9 g/dL (6.4-8.2)
[2017-07-15 22:26] LABS: LACTIC ACID 3.4 mmol/L (0.4-2.0)
[2017-07-15] MEDS ORDERED: LEVOFLOXACIN 750 MG/D5% WATER 150 ML IV ONE (22:30)
[2017-07-15] MEDS ORDERED: ONDANSETRON HCL 4 MG/2 ML VIAL IVP PRN (22:45)
[2017-07-15] MEDS ORDERED: 0.9% SODIUM CHLORIDE 10 ML SYRINGE IVP PRN (22:45)
[2017-07-15] MEDS ORDERED: ACETAMINOPHEN 325 MG TABLET PO PRN (22:45)
[2017-07-15 23:44] LABS: INFLUENZA TYPE A NEGATIVE FOR TYPE A (NEGATIVE); INFLUENZA TYPE B NEGATIVE FOR TYPE B (NEGATIVE)
[2017-07-16] MEDS ORDERED: ACETAMINOPHEN 325 MG TABLET PO PRN
[2017-07-16] MEDS ORDERED: ONDANSETRON HCL 4 MG/2 ML VIAL IVP PRN
[2017-07-16 00:10] LABS: APPEARANCE,URINE CLEAR (CLEAR); BILIRUBIN,URINE NEGATIVE (NEGATIVE); GLUCOSE, URINE (UA) NEGATIVE (NEGATIVE); KETONES,URINE NEGATIVE (NEGATIVE); LEUKOCYTE ESTERASE ,URINE NEGATIVE (NEGATIVE); NITRATE,URINE NEGATIVE (NEGATIVE); OCCULT BLOOD,URINE SMALL (NEGATIVE); PH,URINE 5.5 (5.0-8.0); PROTEIN,URINE SEE CONFIRM (NEGATIVE)
[2017-07-16 00:15] LABS: AMPHET/METH SCREEN,URINE POSITIVE (NEGATIVE); BARBITURATE SCREEN, URINE NEGATIVE (NEGATIVE); BENZODIAZEPINES SCREEN,URINE NEGATIVE (NEGATIVE); CANNABINOID SCREEN,URINE NEGATIVE (NEGATIVE); COCAINE SCREEN,URINE NEGATIVE (NEGATIVE); METHADONE SCREEN, URINE NEGATIVE (NEGATIVE); OPIATE SCREEN,URINE NEGATIVE (NEGATIVE); PHENCYCLIDINE SCREEN,URINE NEGATIVE (NEGATIVE)
[2017-07-16 00:22] LABS: BACTERIA,URINE Rare /HPF (None Seen); SULFOSALICYLIC ACID,URINE 1+ (Negative); WBC,URINE None Seen /HPF (0-5)
[2017-07-16] MEDS ORDERED: CefTRIAXone 1 GM/DEXTROSE 50 ML IV SCH (01:00)
[2017-07-16] MEDS: CEFEPIME HCL 1 GM in DEXTROSE 5%-WATER 50 ML IV SCH ×2 (01:14→14:51)
[2017-07-16] MEDS ORDERED: VANCOMYCIN HCL 1.5 GM in DEXTROSE 5%-WATER 250 ML IV ONE (01:30)
[2017-07-16] MEDS: MORPHINE SULFATE 2 MG/ML SYRINGE IVP PRN ×2 (01:34→17:54)
[2017-07-16] MEDS: LORazepam 2 MG/ML VIAL IVP PRN ×2 (05:26→20:59)
[2017-07-16] MEDS: DOCUSATE SODIUM 100 MG CAPSULE PO SCH ×2 (09:00→19:41)
[2017-07-16] MEDS: FAMOTIDINE 20 MG TABLET PO SCH (09:00)
[2017-07-16] MEDS: LACTOBACILLUS ACIDOPHILUS/BULGARICUS TABLET PO SCH ×2 (09:00→21:00)
[2017-07-16] MEDS ORDERED: FUROSEMIDE 40 MG/4 ML VIAL IVP SCH (09:00)
[2017-07-16] MEDS ORDERED: ENOXAPARIN SODIUM 40 MG/0.4 ML PF SYRINGE SQ SCH ×2 (09:00)
[2017-07-16] MEDS ORDERED: VANCOMYCIN HCL 1 GM/D5% WATER 200 ML IV SCH (09:00)
[2017-07-16] MEDS ORDERED: SODIUM CHLORIDE 0.9% 0 ML IV ONE (09:03)
[2017-07-16 09:11] VITALS: BP 123/96
[2017-07-16] MEDS ORDERED: DIGOXIN 250 MCG/ML 2 ML AMP IVP ONE (09:30)
[2017-07-16] MEDS: SODIUM CHLORIDE 0.9% 1,000 ML IV SCH (10:07)
[2017-07-16] MEDS: VANCOMYCIN HCL 750 MG in DEXTROSE 5%-WATER 150 ML IV SCH ×2 (10:07→19:54)
[2017-07-16 10:34] LABS: BASOPHILS % (AUTO) 0.3 % (0.0-2.0); EOSINOPHILS % (AUTO) 0 % (1.0-6.0); HEMATOCRIT 37.9 % (41-53); HEMOGLOBIN 12.8 g/dL (13.5-17.5); LYMPHOCYTES % (AUTO) 12.1 % (22.0-44.0); MEAN CORPUSCULAR HEMOGLOBIN 30.6 pg (26.0-34.0); MEAN CORPUSCULAR HGB CONC 33.7 G/dL (31.0-37.0); MEAN CORPUSCULAR VOLUME 91 fL (80-100); MONOCYTES # (AUTO) 1.3 K/uL (0.1-1.0); MONOCYTES % (AUTO) 7.8 % (2.0-9.0); NEUTROPHILS % (AUTO) 79.8 % (40.0-70.0); PLATELET COUNT (AUTO) 299 K/uL (150-450); RED BLOOD CELL COUNT(AUTO) 4.17 MIL/uL (4.50-5.90); RED CELL DISTRIBUTION WIDTH 15.5 % (11.5-14.5)
[2017-07-16 10:35] LABS: INR 1.3 (0.9-1.1)
[2017-07-16 11:01] LABS: ALBUMIN 2.5 g/dL (3.4-5.0); BILIRUBIN,TOTAL 1.4 mg/dL (0.1-1.0); CALCIUM, TOTAL 8.4 mg/dL (8.8-10.5); CHOL/HDL RATIO 1.9 (4.2-7.3); CREATININE 1.22 mg/dL (0.60-1.30); MAGNESIUM 1.7 mg/dL (1.80-2.40); PHOSPHORUS 3.9 mg/dL (2.5-4.9); TOTAL PROTEIN, SERUM 6.8 g/dL (6.4-8.2)
[2017-07-16 12:03] VITALS: BP 114/74
[2017-07-16] MEDS: AZITHROMYCIN 500 MG/NS 250 ML IV SCH (12:40)
[2017-07-16] MEDS: ENOXAPARIN SODIUM 30 MG/0.3 ML PF SYRINGE SQ SCH (12:41)
[2017-07-16 15:28] LABS: LACTIC ACID 2.4 mmol/L (0.4-2.0)
[2017-07-16 15:47] VITALS: BP 108/78
[2017-07-16] MEDS: DILTIAZEM HCL 125 MG in DEXTROSE 5%-WATER 100 ML IV SCH (15:51)
[2017-07-16] MEDS: IPRATROPIUM BROMIDE 0.5 MG/2.5 ML NEB SOLUTION NEB PRN (17:31)
[2017-07-16] MEDS: ALBUTEROL SULFATE 2.5 MG/0.5 ML NEB SOLUTION NEB PRN (17:31)
[2017-07-16 19:43] VITALS: BP 114/78
[2017-07-16] MEDS: MethylPREDNISolone SOD SUCC 125 MG/2 ML VIAL IVP SCH (19:54)
[2017-07-16] MEDS: BUDESONIDE 0.5 MG/2 ML NEB SOLUTION NEB SCH (21:40)
[2017-07-16 23:29] VITALS: BP 123/75
[2017-07-17] MEDS: MethylPREDNISolone SOD SUCC 125 MG/2 ML VIAL IVP SCH ×5 (00:58→23:37)
[2017-07-17] MEDS: SODIUM CHLORIDE 0.9% 1,000 ML IV SCH ×2 (00:59→11:55)
[2017-07-17] MEDS: CEFEPIME HCL 1 GM in DEXTROSE 5%-WATER 50 ML IV SCH ×2 (01:23→13:52)
[2017-07-17 04:34] VITALS: BP 132/85
[2017-07-17] MEDS: DILTIAZEM HCL 125 MG in DEXTROSE 5%-WATER 100 ML IV SCH ×2 (04:42→18:28)
[2017-07-17 07:17] VITALS: BP 114/85
[2017-07-17 07:19] LABS: EOSINOPHILS % (AUTO) 0.01 % (1.0-6.0); HEMATOCRIT 40.4 % (41-53); HEMOGLOBIN 13.2 g/dL (13.5-17.5); LYMPHOCYTES # (AUTO) 0.6 K/uL (1.0-4.8); LYMPHOCYTES % (AUTO) 6.8 % (22.0-44.0); MEAN CORPUSCULAR HEMOGLOBIN 30.4 pg (26.0-34.0); MEAN CORPUSCULAR HGB CONC 32.6 G/dL (31.0-37.0); MEAN CORPUSCULAR VOLUME 93 fL (80-100); MONOCYTES # (AUTO) 0.1 K/uL (0.1-1.0); MONOCYTES % (AUTO) 1.5 % (2.0-9.0); NEUTROPHILS # (AUTO) 7.4 K/uL (1.8-7.7); PLATELET COUNT (AUTO) 257 K/uL (150-450); RED BLOOD CELL COUNT(AUTO) 4.33 MIL/uL (4.50-5.90); RED CELL DISTRIBUTION WIDTH 15.8 % (11.5-14.5)
[2017-07-17 07:25] LABS: NEUTROPHILS % (AUTO) 91.7 % (40.0-70.0)
[2017-07-17 07:28] LABS: ANION GAP 9 mmol/L (8-16); CALCIUM, TOTAL 8.6 mg/dL (8.8-10.5); CARBON DIOXIDE 27 mmol/L (22-29); CHLORIDE 99 mmol/L (98-107); CREATININE 1.04 mg/dL (0.60-1.30); GLOMERULAR FILTR. RATE CALC > 60 mL/min (>60); GLUCOSE,RANDOM 224 mg/dL (70-110); POTASSIUM 5.4 mmol/L (3.5-5.1); SODIUM SERUM 135 mmol/L (136-145); UREA NITROGEN, BLOOD 35 mg/dL (7-18); VANCOMYCIN,RANDOM 9.9 mcg/mL (25.0-50.0)
[2017-07-17] MEDS: AZITHROMYCIN 500 MG/NS 250 ML IV SCH (09:00)
[2017-07-17] MEDS: ENOXAPARIN SODIUM 30 MG/0.3 ML PF SYRINGE SQ SCH (09:03)
[2017-07-17] MEDS: LACTOBACILLUS ACIDOPHILUS/BULGARICUS TABLET PO SCH ×2 (09:03→22:01)
[2017-07-17] MEDS: VANCOMYCIN HCL 750 MG in DEXTROSE 5%-WATER 150 ML IV SCH (09:04)
[2017-07-17] MEDS: DOCUSATE SODIUM 100 MG CAPSULE PO SCH ×2 (09:04→22:00)
[2017-07-17] MEDS: FAMOTIDINE 20 MG TABLET PO SCH (09:04)
[2017-07-17] MEDS: BUDESONIDE 0.5 MG/2 ML NEB SOLUTION NEB SCH ×2 (09:54→20:54)
[2017-07-17 11:36] VITALS: BP 125/85
[2017-07-17] MEDS: MORPHINE SULFATE 2 MG/ML SYRINGE IVP PRN (14:01)
[2017-07-17] MEDS ORDERED: SODIUM POLYSTYRENE SULFONATE 15 GM/60 ML SUSPENSION BOTTLE PO ONE (14:30)
[2017-07-17 15:29] VITALS: BP 125/94
[2017-07-17] MEDS: VANCOMYCIN HCL 1 GM/D5% WATER 200 ML IV SCH ×2 (16:12→23:37)
[2017-07-17 19:56] VITALS: BP 130/93
[2017-07-17] MEDS: LORazepam 2 MG/ML VIAL IVP PRN (22:08)
[2017-07-18 00:49] VITALS: BP 128/87
[2017-07-18] MEDS: MORPHINE SULFATE 2 MG/ML SYRINGE IVP PRN ×5 (00:50→20:19)
[2017-07-18] MEDS: CEFEPIME HCL 1 GM in DEXTROSE 5%-WATER 50 ML IV SCH ×2 (02:27→12:16)
[2017-07-18 04:11] VITALS: BP 137/95
[2017-07-18] MEDS: MethylPREDNISolone SOD SUCC 125 MG/2 ML VIAL IVP SCH ×4 (06:10→23:23)
[2017-07-18] MEDS: DILTIAZEM HCL 125 MG in DEXTROSE 5%-WATER 100 ML IV SCH ×2 (06:41→19:24)
[2017-07-18 07:15] VITALS: BP 138/94
[2017-07-18 07:23] LABS: EOSINOPHILS % (AUTO) 0 % (1.0-6.0); HEMATOCRIT 39.4 % (41-53); HEMOGLOBIN 12.8 g/dL (13.5-17.5); LYMPHOCYTES # (AUTO) 0.5 K/uL (1.0-4.8); LYMPHOCYTES % (AUTO) 3.4 % (22.0-44.0); MEAN CORPUSCULAR HEMOGLOBIN 30.3 pg (26.0-34.0); MEAN CORPUSCULAR HGB CONC 32.5 G/dL (31.0-37.0); MEAN CORPUSCULAR VOLUME 93 fL (80-100); MONOCYTES # (AUTO) 0.6 K/uL (0.1-1.0); MONOCYTES % (AUTO) 3.9 % (2.0-9.0); NEUTROPHILS # (AUTO) 13.9 K/uL (1.8-7.7); PLATELET COUNT (AUTO) 322 K/uL (150-450); RED BLOOD CELL COUNT(AUTO) 4.22 MIL/uL (4.50-5.90); RED CELL DISTRIBUTION WIDTH 15.8 % (11.5-14.5)
[2017-07-18 07:33] LABS: ALANINE AMINOTRANSFERASE 93 U/L (12-78); ALBUMIN 2.6 g/dL (3.4-5.0); ALKALINE PHOSPHATASE 257 U/L (46-116); ANION GAP 8 mmol/L (8-16); ASPARTATE AMINOTRANSFERASE 87 U/L (15-37); BILIRUBIN,TOTAL 0.4 mg/dL (0.1-1.0); CALCIUM, TOTAL 8.6 mg/dL (8.8-10.5); CARBON DIOXIDE 29 mmol/L (22-29); CHLORIDE 99 mmol/L (98-107); CREATININE 1.16 mg/dL (0.60-1.30); GLOMERULAR FILTR. RATE CALC > 60 mL/min (>60); GLUCOSE,RANDOM 192 mg/dL (70-110); POTASSIUM 5.3 mmol/L (3.5-5.1); SODIUM SERUM 136 mmol/L (136-145); TOTAL PROTEIN, SERUM 7.3 g/dL (6.4-8.2); UREA NITROGEN, BLOOD 33 mg/dL (7-18)
[2017-07-18 08:12] LABS: NEUTROPHILS % (AUTO) 92.8 % (40.0-70.0)
[2017-07-18] MEDS: FAMOTIDINE 20 MG TABLET PO SCH (08:42)
[2017-07-18] MEDS: AZITHROMYCIN 500 MG/NS 250 ML IV SCH ×2 (08:42→10:43)
[2017-07-18] MEDS: VANCOMYCIN HCL 1 GM/D5% WATER 200 ML IV SCH ×3 (08:42→23:24)
[2017-07-18] MEDS: ENOXAPARIN SODIUM 30 MG/0.3 ML PF SYRINGE SQ SCH (08:43)
[2017-07-18] MEDS: DOCUSATE SODIUM 100 MG CAPSULE PO SCH ×2 (08:44→20:17)
[2017-07-18] MEDS ORDERED: SODIUM POLYSTYRENE SULFONATE 15 GM/60 ML SUSPENSION BOTTLE PO ONE (08:45)
[2017-07-18] MEDS: LACTOBACILLUS ACIDOPHILUS/BULGARICUS TABLET PO SCH ×2 (08:48→20:18)
[2017-07-18] MEDS: FUROSEMIDE 40 MG/4 ML VIAL IVP ONE ×2 (09:37→12:15)
[2017-07-18] MEDS: BUDESONIDE 0.5 MG/2 ML NEB SOLUTION NEB SCH ×2 (09:48→20:33)
[2017-07-18 11:16] VITALS: BP 138/94
[2017-07-18] MEDS: ALBUTEROL SULFATE 2.5 MG/0.5 ML NEB SOLUTION NEB PRN (12:25)
[2017-07-18] MEDS: IPRATROPIUM BROMIDE 0.5 MG/2.5 ML NEB SOLUTION NEB PRN (12:25)
[2017-07-18 15:21] VITALS: BP 136/91
[2017-07-18 19:10] VITALS: BP 143/94
[2017-07-19] VITALS (7 sets, daily range): BP systolic 118–144; BP diastolic 59–89
[2017-07-19] MEDS: CEFEPIME HCL 1 GM in DEXTROSE 5%-WATER 50 ML IV SCH ×3 (00:35→23:23)
[2017-07-19] MEDS: MORPHINE SULFATE 2 MG/ML SYRINGE IVP PRN ×4 (01:17→20:34)
[2017-07-19] MEDS ORDERED: SODIUM CHLORIDE 0.9% 500 ML IV ONE (01:49)
[2017-07-19] MEDS: MethylPREDNISolone SOD SUCC 125 MG/2 ML VIAL IVP SCH (05:19)
[2017-07-19 07:21] LABS: ALANINE AMINOTRANSFERASE 92 U/L (12-78); ALBUMIN 2.6 g/dL (3.4-5.0); ALKALINE PHOSPHATASE 231 U/L (46-116); ANION GAP 5 mmol/L (8-16); ASPARTATE AMINOTRANSFERASE 78 U/L (15-37); BILIRUBIN,TOTAL 0.4 mg/dL (0.1-1.0); CALCIUM, TOTAL 8.9 mg/dL (8.8-10.5); CARBON DIOXIDE 31 mmol/L (22-29); CHLORIDE 98 mmol/L (98-107); CREATININE 0.97 mg/dL (0.60-1.30); GLOMERULAR FILTR. RATE CALC > 60 mL/min (>60); GLUCOSE,RANDOM 169 mg/dL (70-110); SODIUM SERUM 134 mmol/L (136-145); TOTAL PROTEIN, SERUM 7.2 g/dL (6.4-8.2); UREA NITROGEN, BLOOD 37 mg/dL (7-18)
[2017-07-19] MEDS: VANCOMYCIN HCL 1 GM/D5% WATER 200 ML IV SCH ×3 (07:45→23:28)
[2017-07-19] MEDS: FAMOTIDINE 20 MG TABLET PO SCH (07:46)
[2017-07-19] MEDS: ENOXAPARIN SODIUM 30 MG/0.3 ML PF SYRINGE SQ SCH (07:46)
[2017-07-19] MEDS: DOCUSATE SODIUM 100 MG CAPSULE PO SCH ×2 (07:46→20:33)
[2017-07-19] MEDS: LACTOBACILLUS ACIDOPHILUS/BULGARICUS TABLET PO SCH ×2 (07:46→20:33)
[2017-07-19] MEDS: DILTIAZEM HCL 125 MG in DEXTROSE 5%-WATER 100 ML IV SCH (07:48)
[2017-07-19] MEDS ORDERED: FUROSEMIDE 40 MG/4 ML VIAL IVP SCH (09:00)
[2017-07-19 09:21] LABS: EOSINOPHILS % (AUTO) 0 % (1.0-6.0); HEMATOCRIT 38.7 % (41-53); HEMOGLOBIN 12.5 g/dL (13.5-17.5); LYMPHOCYTES # (AUTO) 0.4 K/uL (1.0-4.8); LYMPHOCYTES % (AUTO) 2.6 % (22.0-44.0); MEAN CORPUSCULAR HEMOGLOBIN 30.6 pg (26.0-34.0); MEAN CORPUSCULAR HGB CONC 32.2 G/dL (31.0-37.0); MEAN CORPUSCULAR VOLUME 95 fL (80-100); MONOCYTES # (AUTO) 0.3 K/uL (0.1-1.0); NEUTROPHILS # (AUTO) 13.5 K/uL (1.8-7.7); PLATELET COUNT (AUTO) 315 K/uL (150-450); RED BLOOD CELL COUNT(AUTO) 4.07 MIL/uL (4.50-5.90); RED CELL DISTRIBUTION WIDTH 16.4 % (11.5-14.5)
[2017-07-19] MEDS: BUDESONIDE 0.5 MG/2 ML NEB SOLUTION NEB SCH ×2 (09:44→20:45)
[2017-07-19] MEDS: AZITHROMYCIN 500 MG/NS 250 ML IV SCH (09:58)
[2017-07-19 10:17] LABS: NEUTROPHILS % (AUTO) 95.5 % (40.0-70.0)
[2017-07-19] MEDS: METOPROLOL TARTRATE 25 MG TABLET PO SCH ×2 (10:24→20:33)
[2017-07-19] MEDS: MethylPREDNISolone SOD SUCC 40 MG/ML VIAL IVP SCH ×2 (15:50→23:23)
[2017-07-20] VITALS (7 sets, daily range): BP systolic 116–145; BP diastolic 74–100
[2017-07-20] MEDS ORDERED: 0.9% SODIUM CHLORIDE 5 ML NEB SOLUTION NEB ONE (01:55)
[2017-07-20] MEDS: ALBUTEROL SULFATE 2.5 MG/0.5 ML NEB SOLUTION NEB PRN (01:59)
[2017-07-20] MEDS: IPRATROPIUM BROMIDE 0.5 MG/2.5 ML NEB SOLUTION NEB PRN (01:59)
[2017-07-20] MEDS: MORPHINE SULFATE 2 MG/ML SYRINGE IVP PRN ×4 (04:45→22:21)
[2017-07-20 06:30] LABS: EOSINOPHILS % (AUTO) 0.2 % (1.0-6.0); HEMATOCRIT 38.6 % (41-53); HEMOGLOBIN 12.9 g/dL (13.5-17.5); LYMPHOCYTES # (AUTO) 0.3 K/uL (1.0-4.8); LYMPHOCYTES % (AUTO) 1.9 % (22.0-44.0); MEAN CORPUSCULAR HEMOGLOBIN 30.4 pg (26.0-34.0); MEAN CORPUSCULAR HGB CONC 33.4 G/dL (31.0-37.0); MEAN CORPUSCULAR VOLUME 91 fL (80-100); MONOCYTES # (AUTO) 0.3 K/uL (0.1-1.0); MONOCYTES % (AUTO) 2.4 % (2.0-9.0); NEUTROPHILS # (AUTO) 13.1 K/uL (1.8-7.7); PLATELET COUNT (AUTO) 347 K/uL (150-450); RED BLOOD CELL COUNT(AUTO) 4.24 MIL/uL (4.50-5.90); RED CELL DISTRIBUTION WIDTH 16.1 % (11.5-14.5)
[2017-07-20 07:00] LABS: ALANINE AMINOTRANSFERASE 96 U/L (12-78); ALBUMIN 2.7 g/dL (3.4-5.0); ALKALINE PHOSPHATASE 217 U/L (46-116); ANION GAP 4 mmol/L (8-16); ASPARTATE AMINOTRANSFERASE 56 U/L (15-37); BILIRUBIN,TOTAL 0.4 mg/dL (0.1-1.0); CALCIUM, TOTAL 8.9 mg/dL (8.8-10.5); CARBON DIOXIDE 32 mmol/L (22-29); CHLORIDE 99 mmol/L (98-107); CREATININE 1.13 mg/dL (0.60-1.30); GLOMERULAR FILTR. RATE CALC > 60 mL/min (>60); GLUCOSE,RANDOM 202 mg/dL (70-110); POTASSIUM 4.7 mmol/L (3.5-5.1); SODIUM SERUM 135 mmol/L (136-145); TOTAL PROTEIN, SERUM 7.2 g/dL (6.4-8.2); UREA NITROGEN, BLOOD 46 mg/dL (7-18); VANCOMYCIN,RANDOM 21.9 mcg/mL (25.0-50.0)
[2017-07-20 07:23] LABS: NEUTROPHILS % (AUTO) 95.5 % (40.0-70.0)
[2017-07-20] MEDS: VANCOMYCIN HCL 1 GM/D5% WATER 200 ML IV SCH ×3 (08:36→23:57)
[2017-07-20] MEDS: MethylPREDNISolone SOD SUCC 40 MG/ML VIAL IVP SCH ×3 (08:36→23:57)
[2017-07-20] MEDS: BUDESONIDE 0.5 MG/2 ML NEB SOLUTION NEB SCH ×2 (08:37→20:29)
[2017-07-20] MEDS ORDERED: ALBUTEROL SULFATE HFA 90 MCG/PUFF 8 GM INHALER IH PRN (08:45)
[2017-07-20] MEDS: DOCUSATE SODIUM 100 MG CAPSULE PO SCH ×2 (08:51→20:44)
[2017-07-20] MEDS: ENOXAPARIN SODIUM 30 MG/0.3 ML PF SYRINGE SQ SCH (08:52)
[2017-07-20] MEDS: LACTOBACILLUS ACIDOPHILUS/BULGARICUS TABLET PO SCH ×2 (08:52→20:44)
[2017-07-20] MEDS: FAMOTIDINE 20 MG TABLET PO SCH (08:52)
[2017-07-20] MEDS: METOPROLOL TARTRATE 50 MG TABLET PO SCH ×2 (10:06→20:44)
[2017-07-20] MEDS: FUROSEMIDE 40 MG/4 ML VIAL IVP SCH ×2 (10:06→20:44)
[2017-07-20] MEDS: FUROSEMIDE 40 MG TABLET PO SCH ×2 (10:10→20:44)
[2017-07-20] MEDS ORDERED: SODIUM CHLORIDE 0.9% 100 ML ONE (10:58)
[2017-07-20] MEDS: AZITHROMYCIN 500 MG/NS 250 ML IV SCH (12:13)
[2017-07-20 14:14] LABS: LEGIONELLA PNEUMO AG URINE Negative (Negative); ORGANISM ID Not indicated.; S PNEUMO SOURCE Urine; STREP PNEUMONIAE AG URINE Negative (Negative); STREP.PNEUMO BODY FLUID CULT. Not Indicated
[2017-07-20] MEDS: CEFEPIME HCL 1 GM in DEXTROSE 5%-WATER 50 ML IV SCH (14:20)
[2017-07-20] MEDS: LEVALBUTEROL HCL 0.63 MG/3 ML NEB SOLUTION NEB SCH ×2 (15:33→20:29)
[2017-07-20] MEDS: IPRATROPIUM BROMIDE 0.5 MG/2.5 ML NEB SOLUTION NEB SCH ×2 (15:34→20:29)
[2017-07-21] VITALS (7 sets, daily range): BP systolic 114–141; BP diastolic 47–100
[2017-07-21] MEDS: CEFEPIME HCL 1 GM in DEXTROSE 5%-WATER 50 ML IV SCH ×2 (01:54→13:59)
[2017-07-21] MEDS: IPRATROPIUM BROMIDE 0.5 MG/2.5 ML NEB SOLUTION NEB SCH ×4 (02:12→19:37)
[2017-07-21] MEDS: LEVALBUTEROL HCL 0.63 MG/3 ML NEB SOLUTION NEB SCH ×4 (02:12→19:37)
[2017-07-21 07:19] LABS: EOSINOPHILS % (AUTO) 0.01 % (1.0-6.0); HEMATOCRIT 42.9 % (41-53); HEMOGLOBIN 13.6 g/dL (13.5-17.5); LYMPHOCYTES # (AUTO) 0.4 K/uL (1.0-4.8); LYMPHOCYTES % (AUTO) 2.4 % (22.0-44.0); MEAN CORPUSCULAR HEMOGLOBIN 29.8 pg (26.0-34.0); MEAN CORPUSCULAR HGB CONC 31.7 G/dL (31.0-37.0); MEAN CORPUSCULAR VOLUME 94 fL (80-100); MONOCYTES # (AUTO) 0.3 K/uL (0.1-1.0); MONOCYTES % (AUTO) 1.9 % (2.0-9.0); NEUTROPHILS # (AUTO) 15.4 K/uL (1.8-7.7); PLATELET COUNT (AUTO) 380 K/uL (150-450); RED BLOOD CELL COUNT(AUTO) 4.56 MIL/uL (4.50-5.90); RED CELL DISTRIBUTION WIDTH 15.8 % (11.5-14.5)
[2017-07-21 07:21] LABS: NEUTROPHILS % (AUTO) 95.7 % (40.0-70.0)
[2017-07-21] MEDS: ALBUTEROL SULFATE 2.5 MG/0.5 ML NEB SOLUTION NEB PRN (07:54)
[2017-07-21] MEDS: BUDESONIDE 0.5 MG/2 ML NEB SOLUTION NEB SCH ×2 (07:54→19:49)
[2017-07-21 08:13] LABS: ALANINE AMINOTRANSFERASE 95 U/L (12-78); ALBUMIN 2.8 g/dL (3.4-5.0); ALKALINE PHOSPHATASE 207 U/L (46-116); ANION GAP 7 mmol/L (8-16); ASPARTATE AMINOTRANSFERASE 52 U/L (15-37); BILIRUBIN,TOTAL 0.4 mg/dL (0.1-1.0); CALCIUM, TOTAL 8.9 mg/dL (8.8-10.5); CARBON DIOXIDE 31 mmol/L (22-29); CHLORIDE 95 mmol/L (98-107); CREATININE 1.13 mg/dL (0.60-1.30); GLOMERULAR FILTR. RATE CALC > 60 mL/min (>60); GLUCOSE,RANDOM 159 mg/dL (70-110); POTASSIUM 4.7 mmol/L (3.5-5.1); SODIUM SERUM 133 mmol/L (136-145); TOTAL PROTEIN, SERUM 7.3 g/dL (6.4-8.2); UREA NITROGEN, BLOOD 57 mg/dL (7-18)
[2017-07-21 09:15] LABS: PLATELET MORPHOLOGY COMMENT NORMAL
[2017-07-21] MEDS ORDERED: DIGOXIN 250 MCG/ML 2 ML AMP IVP ONE (09:15)
[2017-07-21] MEDS: FUROSEMIDE 40 MG/4 ML VIAL IVP SCH ×2 (09:27→20:21)
[2017-07-21] MEDS: MethylPREDNISolone SOD SUCC 40 MG/ML VIAL IVP SCH ×2 (09:27→15:29)
[2017-07-21] MEDS: VANCOMYCIN HCL 1 GM/D5% WATER 200 ML IV SCH ×2 (09:27→15:28)
[2017-07-21] MEDS: LACTOBACILLUS ACIDOPHILUS/BULGARICUS TABLET PO SCH ×2 (09:28→20:20)
[2017-07-21] MEDS: FAMOTIDINE 20 MG TABLET PO SCH (09:28)
[2017-07-21] MEDS: METOPROLOL TARTRATE 50 MG TABLET PO SCH ×2 (09:28→20:20)
[2017-07-21] MEDS: FUROSEMIDE 40 MG TABLET PO SCH ×2 (09:28→20:20)
[2017-07-21] MEDS: DOCUSATE SODIUM 100 MG CAPSULE PO SCH ×2 (09:28→20:20)
[2017-07-21] MEDS: ENOXAPARIN SODIUM 30 MG/0.3 ML PF SYRINGE SQ SCH (09:29)
[2017-07-21] MEDS: AZITHROMYCIN 500 MG/NS 250 ML IV SCH (12:24)
[2017-07-21] MEDS: MORPHINE SULFATE 2 MG/ML SYRINGE IVP PRN ×2 (13:58→20:24)
[2017-07-22] MEDS: VANCOMYCIN HCL 1 GM/D5% WATER 200 ML IV SCH ×4 (00:26→23:56)
[2017-07-22] MEDS: MethylPREDNISolone SOD SUCC 40 MG/ML VIAL IVP SCH ×3 (00:27→16:10)
[2017-07-22] MEDS: LEVALBUTEROL HCL 0.63 MG/3 ML NEB SOLUTION NEB SCH ×4 (02:03→19:37)
[2017-07-22] MEDS: IPRATROPIUM BROMIDE 0.5 MG/2.5 ML NEB SOLUTION NEB SCH ×4 (02:03→19:37)
[2017-07-22] MEDS: MORPHINE SULFATE 2 MG/ML SYRINGE IVP PRN ×4 (02:28→20:33)
[2017-07-22] MEDS: CEFEPIME HCL 1 GM in DEXTROSE 5%-WATER 50 ML IV SCH ×2 (02:34→12:33)
[2017-07-22 04:08] VITALS: BP 124/74
[2017-07-22 06:47] LABS: HEMOGLOBIN 14.6 g/dL (13.5-17.5); MEAN CORPUSCULAR HEMOGLOBIN 30.6 pg (26.0-34.0); MEAN CORPUSCULAR HGB CONC 33.3 G/dL (31.0-37.0); MEAN CORPUSCULAR VOLUME 92 fL (80-100); PLATELET COUNT (AUTO) 426 K/uL (150-450); RED BLOOD CELL COUNT(AUTO) 4.79 MIL/uL (4.50-5.90)
[2017-07-22] MEDS: BUDESONIDE 0.5 MG/2 ML NEB SOLUTION NEB SCH ×2 (07:15→19:50)
[2017-07-22 07:18] LABS: ALANINE AMINOTRANSFERASE 91 U/L (12-78); ALBUMIN 2.8 g/dL (3.4-5.0); ALKALINE PHOSPHATASE 193 U/L (46-116); ANION GAP 5 mmol/L (8-16); ASPARTATE AMINOTRANSFERASE 51 U/L (15-37); BILIRUBIN,TOTAL 0.5 mg/dL (0.1-1.0); CALCIUM, TOTAL 9.1 mg/dL (8.8-10.5); CARBON DIOXIDE 34 mmol/L (22-29); CHLORIDE 93 mmol/L (98-107); CREATININE 1.16 mg/dL (0.60-1.30); GLOMERULAR FILTR. RATE CALC > 60 mL/min (>60); GLUCOSE,RANDOM 139 mg/dL (70-110); POTASSIUM 4.9 mmol/L (3.5-5.1); SODIUM SERUM 132 mmol/L (136-145); TOTAL PROTEIN, SERUM 7.4 g/dL (6.4-8.2); UREA NITROGEN, BLOOD 59 mg/dL (7-18)
[2017-07-22 07:39] VITALS: BP 119/80
[2017-07-22] MEDS: FUROSEMIDE 40 MG/4 ML VIAL IVP SCH ×2 (08:31→20:29)
[2017-07-22] MEDS: METOPROLOL TARTRATE 50 MG TABLET PO SCH ×2 (08:32→20:29)
[2017-07-22] MEDS: FUROSEMIDE 40 MG TABLET PO SCH ×2 (08:32→20:29)
[2017-07-22] MEDS: DOCUSATE SODIUM 100 MG CAPSULE PO SCH ×2 (08:32→20:29)
[2017-07-22] MEDS: LACTOBACILLUS ACIDOPHILUS/BULGARICUS TABLET PO SCH ×2 (08:33→20:26)
[2017-07-22] MEDS: ENOXAPARIN SODIUM 30 MG/0.3 ML PF SYRINGE SQ SCH (08:33)
[2017-07-22] MEDS: FAMOTIDINE 20 MG TABLET PO SCH (08:34)
[2017-07-22 08:39] LABS: BAND NEUTROPHILS % (MANUAL) 4 % (1-5); LYMPHOCYTES % (MANUAL) 2 % (22-44); MONOCYTES % (MANUAL) 2 % (2-9); REACTIVE LYMPHOCYTES 3 % (0-0); SEGMENTED NEUTROPHILS % 89 % (40-70)
[2017-07-22 10:42] VITALS: BP 125/86
[2017-07-22] MEDS: AZITHROMYCIN 500 MG/NS 250 ML IV SCH (10:45)
[2017-07-22 15:40] VITALS: BP 117/90
[2017-07-22 19:15] VITALS: BP 154/78
[2017-07-22 23:39] VITALS: BP 119/87
[2017-07-23] MEDS: MethylPREDNISolone SOD SUCC 40 MG/ML VIAL IVP SCH ×2 (00:16→08:17)
[2017-07-23] MEDS: LEVALBUTEROL HCL 0.63 MG/3 ML NEB SOLUTION NEB SCH ×4 (01:56→21:31)
[2017-07-23] MEDS: IPRATROPIUM BROMIDE 0.5 MG/2.5 ML NEB SOLUTION NEB SCH ×4 (01:56→21:30)
[2017-07-23] MEDS: CEFEPIME HCL 1 GM/VIAL IVP SCH ×2 (02:13→13:36)
[2017-07-23] MEDS: MORPHINE SULFATE 2 MG/ML SYRINGE IVP PRN ×3 (02:29→16:20)
[2017-07-23 03:41] VITALS: BP 138/81
[2017-07-23 07:04] LABS: ANION GAP 4 mmol/L (8-16); CALCIUM, TOTAL 9.1 mg/dL (8.8-10.5); CARBON DIOXIDE 35 mmol/L (22-29); CHLORIDE 91 mmol/L (98-107); GLOMERULAR FILTR. RATE CALC > 60 mL/min (>60); GLUCOSE,RANDOM 153 mg/dL (70-110); SODIUM SERUM 130 mmol/L (136-145); UREA NITROGEN, BLOOD 65 mg/dL (7-18)
[2017-07-23 07:41] VITALS: BP 148/109
[2017-07-23] MEDS: VANCOMYCIN HCL 1 GM/D5% WATER 200 ML IV SCH ×3 (08:14→22:52)
[2017-07-23] MEDS: FUROSEMIDE 40 MG/4 ML VIAL IVP SCH ×2 (08:14→20:31)
[2017-07-23] MEDS: FUROSEMIDE 40 MG TABLET PO SCH ×2 (08:15→20:31)
[2017-07-23] MEDS: LACTOBACILLUS ACIDOPHILUS/BULGARICUS TABLET PO SCH ×2 (08:15→20:31)
[2017-07-23] MEDS: DOCUSATE SODIUM 100 MG CAPSULE PO SCH ×2 (08:16→20:31)
[2017-07-23] MEDS: ENOXAPARIN SODIUM 30 MG/0.3 ML PF SYRINGE SQ SCH (08:16)
[2017-07-23] MEDS: FAMOTIDINE 20 MG TABLET PO SCH (08:16)
[2017-07-23] MEDS: METOPROLOL TARTRATE 50 MG TABLET PO SCH ×2 (08:17→20:38)
[2017-07-23] MEDS: BUDESONIDE 0.5 MG/2 ML NEB SOLUTION NEB SCH ×2 (09:15→21:30)
[2017-07-23 11:29] VITALS: BP 108/59
[2017-07-23] MEDS: AZITHROMYCIN 500 MG/NS 250 ML IV SCH (12:23)
[2017-07-23 15:31] VITALS: BP 137/77
[2017-07-23] MEDS: PredniSONE 20 MG TABLET PO SCH (16:14)
[2017-07-23] MEDS: HYDROCODONE/ACETAMINOPHEN 5-325 MG TABLET PO PRN (19:30)
[2017-07-23 19:58] VITALS: BP 120/87
[2017-07-23] MEDS: LORazepam 2 MG/ML VIAL IVP PRN (19:58)
[2017-07-24] VITALS: BP 134/68
[2017-07-24] MEDS: CEFEPIME HCL 1 GM/VIAL IVP SCH (01:30)
[2017-07-24] MEDS: LEVALBUTEROL HCL 0.63 MG/3 ML NEB SOLUTION NEB SCH ×2 (02:46→10:09)
[2017-07-24] MEDS: IPRATROPIUM BROMIDE 0.5 MG/2.5 ML NEB SOLUTION NEB SCH ×2 (02:46→10:09)
[2017-07-24 04:18] VITALS: BP 111/70
[2017-07-24 06:58] LABS: HEMATOCRIT 44.2 % (41-53); HEMOGLOBIN 14.3 g/dL (13.5-17.5); MEAN CORPUSCULAR HEMOGLOBIN 30.1 pg (26.0-34.0); MEAN CORPUSCULAR HGB CONC 32.4 G/dL (31.0-37.0); MEAN CORPUSCULAR VOLUME 93 fL (80-100); PLATELET COUNT (AUTO) 405 K/uL (150-450); RED BLOOD CELL COUNT(AUTO) 4.77 MIL/uL (4.50-5.90); RED CELL DISTRIBUTION WIDTH 16.1 % (11.5-14.5)
[2017-07-24 07:30] LABS: ALANINE AMINOTRANSFERASE 122 U/L (12-78); ALBUMIN 2.8 g/dL (3.4-5.0); ALKALINE PHOSPHATASE 179 U/L (46-116); ANION GAP 4 mmol/L (8-16); ASPARTATE AMINOTRANSFERASE 72 U/L (15-37); BILIRUBIN,TOTAL 0.5 mg/dL (0.1-1.0); CALCIUM, TOTAL 8.7 mg/dL (8.8-10.5); CARBON DIOXIDE 35 mmol/L (22-29); CHLORIDE 89 mmol/L (98-107); CREATININE 1.19 mg/dL (0.60-1.30); GLOMERULAR FILTR. RATE CALC > 60 mL/min (>60); GLUCOSE,RANDOM 172 mg/dL (70-110); POTASSIUM 4.9 mmol/L (3.5-5.1); SODIUM SERUM 128 mmol/L (136-145); TOTAL PROTEIN, SERUM 6.9 g/dL (6.4-8.2); UREA NITROGEN, BLOOD 60 mg/dL (7-18); VANCOMYCIN,RANDOM 25.6 mcg/mL (25.0-50.0)
[2017-07-24 07:35] VITALS: BP 131/91
[2017-07-24] MEDS: PredniSONE 20 MG TABLET PO SCH (08:26)
[2017-07-24] MEDS: FUROSEMIDE 40 MG TABLET PO SCH (08:26)
[2017-07-24] MEDS: DOCUSATE SODIUM 100 MG CAPSULE PO SCH (08:27)
[2017-07-24] MEDS: LACTOBACILLUS ACIDOPHILUS/BULGARICUS TABLET PO SCH (08:27)
[2017-07-24] MEDS: ENOXAPARIN SODIUM 30 MG/0.3 ML PF SYRINGE SQ SCH (08:27)
[2017-07-24] MEDS: METOPROLOL TARTRATE 50 MG TABLET PO SCH (08:27)
[2017-07-24] MEDS: FUROSEMIDE 40 MG/4 ML VIAL IVP SCH (08:28)
[2017-07-24] MEDS: VANCOMYCIN HCL 1 GM/D5% WATER 200 ML IV SCH (08:28)
[2017-07-24] MEDS: HYDROCODONE/ACETAMINOPHEN 5-325 MG TABLET PO PRN (08:29)
[2017-07-24] MEDS: FAMOTIDINE 20 MG TABLET PO SCH (08:29)
[2017-07-24] MEDS: BUDESONIDE 0.5 MG/2 ML NEB SOLUTION NEB SCH (10:09)
[2017-07-24 11:01] LABS: BAND NEUTROPHILS % (MANUAL) 1 % (1-5); LYMPHOCYTES % (MANUAL) 12 % (22-44); METAMYELOCYTES % 3 % (0-0); MONOCYTES % (MANUAL) 11 % (2-9); SEGMENTED NEUTROPHILS % 73 % (40-70)
[2017-07-24] MEDS: AZITHROMYCIN 500 MG/NS 250 ML IV SCH (11:21)
[2017-07-24] MEDS: LORazepam 2 MG/ML VIAL IVP PRN (11:23)
[2017-07-24 12:09] VITALS: BP 123/83
[2017-07-24] MEDS ORDERED: SODIUM BICARBONATE [ADULT] 8.4% 50 MEQ/50 ML SYRINGE IVP ONE (12:49)
[2017-07-24] MEDS ORDERED: EPINEPHrine 1:10,000 [1 MG/10 ML] SYRINGE IVP ONE (12:49)
[2017-07-24] MEDS ORDERED: ATROPINE SULFATE 0.1 MG/ML 10 ML SYRINGE IVP ONE (12:49)
[2017-07-24] MEDS ORDERED: VANCOMYCIN HCL 750 MG in DEXTROSE 5%-WATER 150 ML IV SCH (16:00)
[2017-07-25 04:43] LABS: GLUCOMETER DEV NAME(LOC) 5N 1M; GLUCOSE,POINT OF CARE 98 MG/DL (70-110)
== END 2017-07-24 12:50 | disposition expired | DRG 871 ==
LOC: EMS 20:44 → 5S 07-16 03:54
PROVIDERS: ADMIT Hospitalist; ATTEND Hospitalist
PROC: 0BH17EZ Insertion of Endotracheal Airway into Trachea, Via Natural or Artificial Opening (ICD-10-PCS; principal; 2017-07-24)
PROC: 5A12012 Performance of Cardiac Output, Single, Manual (ICD-10-PCS; 2017-07-24)
DX: A41.9 Sepsis, unspecified organism (principal); J18.9 Pneumonia, unspecified organism; I50.43 Acute on chronic combined systolic (congestive) and diastolic (congestive) heart failure; N17.9 Acute kidney failure, unspecified; E87.2 Acidosis; I42.9 Cardiomyopathy, unspecified; I48.91 Unspecified atrial fibrillation; J44.0 Chronic obstructive pulmonary disease with (acute) lower respiratory infection; I45.2 Bifascicular block; J44.1 Chronic obstructive pulmonary disease with (acute) exacerbation; I46.9 Cardiac arrest, cause unspecified; I71.2 Thoracic aortic aneurysm, without rupture; F15.10 Other stimulant abuse, uncomplicated; F10.20 Alcohol dependence, uncomplicated; I35.0 Nonrheumatic aortic (valve) stenosis; M54.30 Sciatica, unspecified side; F17.210 Nicotine dependence, cigarettes, uncomplicated; E66.9 Obesity, unspecified; R65.20 Severe sepsis without septic shock; F12.10 Cannabis abuse, uncomplicated; E87.5 Hyperkalemia; I25.2 Old myocardial infarction; Z59.0 Homelessness; Z91.19 Patient's noncompliance with other medical treatment and regimen; Z68.32 Body mass index [BMI] 32.0-32.9, adult
CPT/HCPCS: 71250; 82962; 83605; 83735; 84100; 87040; 87449; 87804; 87899; 92950; 93005; 94640; 94644; 96365; 96366; 96367; 96375; 99291; J0171; J0456; J0461; J0692; J1160; J1650; J1940; J1956; J2060; J2270; J2920; J2930; J3370; J3490; J3535; J7030; J7040; J7050; J7060